=== PATIENT | female | born 1995 | race American Indian/Alaskan Native ===

== ENCOUNTER 2019-01-29 10:47 | Emergency (ER) | payer OTHER ==
[2019-01-29] MEDS ORDERED: IBUPROFEN PO ONE (13:19)
[2019-01-29] MEDS ORDERED: BOOSTRIX IM ONE (13:20)
[2019-01-29] MEDS ORDERED: XYLOCAINE 1% 20 mL INFILTRATI ONE (13:20)
--- NOTE | 2019-01-29 14:51 | Emergency Department Report ---
- General Chief Complaint: Wound/Laceration Stated Complaint: CUT ON R FOOT Time Seen by Provider: 01/29/19 13:19 Source: patient Mode of arrival: Ambulatory Limitations: No Limitations - History of Present Illness Initial Comments: Patient states she fell out of bed this morning and has a cut to her right foot. Patient was unable to stop the bleeding at home she came to the emergency department. Patient states she cut it on a week stand when she tripped out of bed. - Related Data Previous Rx's Medication Instructions Recorded Last Taken Type Ibuprofen [Ibu] 600 mg PO Q6HR PRN #20 tablet 01/29/19 Unknown Rx traMADol [Ultram] 50 mg PO Q6HR PRN #6 tablet 01/29/19 Unknown Rx Allergies Allergy/AdvReac Type Severity Reaction Status Date / Time No Known Allergies Allergy Unverified 01/29/19 10:50 ED Review of Systems ROS: Stated complaint: CUT ON R FOOT Other details as noted in HPI Comment: All other systems reviewed and negative ED Past Medical Hx - Past Medical History Previous Medical History?: No - Surgical History Past Surgical History?: No - Social History Smoking Status: Current Every Day Smoker Substance Use Type: Marijuana - Medications Home Medications: Home Medications Medication Instructions Recorded Confirmed Last Taken Type Ibuprofen [Ibu] 600 mg PO Q6HR PRN #20 tablet 01/29/19 Unknown Rx traMADol [Ultram] 50 mg PO Q6HR PRN #6 tablet 01/29/19 Unknown Rx ED Physical Exam - General Limitations: No Limitations General appearance: alert, in no apparent distress - Head Head exam: Present: atraumatic, normocephalic - Eye Eye exam: Present: normal appearance, PERRL, EOMI - ENT ENT exam: Present: mucous membranes moist - Neck Neck exam: Present: normal inspection - Respiratory Respiratory exam: Absent: respiratory distress - GI/Abdominal GI/Abdominal exam: Absent: distended - Extremities Exam Extremities exam: Present: other (patient with a 2 cm laceration to the right foot. This is along the great toe.) ED Course Vital Signs 01/29/19 01/29/19 10:52 14:11 Temperature 98 F Pulse Rate 66 Respiratory 16 22 Rate Blood Pressure 124/93 O2 Sat by Pulse 98 Oximetry - Laceration /Wound Repair Right Foot Wound Location: lower extremity Wound Length (cm): 2 Wound's Depth, Shape: superficial Wound Explored: clean Irrigated w/ Saline (ccs): 200 Betadine Prep?: Yes Anesthesia: 1% Lidocaine Volume Anesthetic (ccs): 5 Wound Repaired With: sutures Suture Size/Type: 4:0, nylon Number of Sutures: 5 Layer Closure?: No Sterile Dressing Applied?: Yes Critical care attestation.: If time is entered above; I have spent that time in minutes in the direct care of this critically ill patient, excluding procedure time. ED Disposition Clinical Impression: Foot laceration Qualifiers: Encounter type: initial encounter Laterality: right Qualified Code(s): S91.311A - Laceration without foreign body, right foot, initial encounter Disposition: DC- TO HOME OR SELFCARE Is pt being admited?: No Does the pt Need Aspirin: No Condition: Stable Instructions: Suture Care (ED), Laceration (ED) Additional Instructions: Please follow up with an urgent care or your primary care physician in one week for suture removal. Time of Disposition: 14:50
[2019-01-29 15:44] VITALS: BP 135/88
== END 2019-01-29 15:45 | disposition home or self-care (01) ==
LOC: ED 10:47
DX: S91.311A Laceration without foreign body, right foot, initial encounter (principal); F17.200 Nicotine dependence, unspecified, uncomplicated; F12.10 Cannabis abuse, uncomplicated; W06.XXXA Fall from bed, initial encounter; Y93.89 Activity, other specified; Y92.009 Unspecified place in unspecified non-institutional (private) residence as the place of occurrence of the external cause; Y99.8 Other external cause status
CPT/HCPCS: 90471; 90715